=== PATIENT | male | born 1955 | race Two or more races ===

== ENCOUNTER 2018-04-10 15:13 | Emergency (ER) | payer OTHER ==
[~2018-04-10] VITALS: Ht 167.6 cm; Wt 71.2 kg
[2018-04-10] MEDS ORDERED: VASOTEC5 MG (15:40)
[2018-04-10] MEDS ORDERED: LIPITOR20 MG (15:41)
[2018-04-10] MEDS ORDERED: ZANAFLEX4 M1 (15:43)
[2018-04-10] MEDS ORDERED: TRAM1TAB98 (15:43)
[2018-04-10] MEDS ORDERED: MOTRIN IB200 MG (15:43)
[2018-04-10] MEDS ORDERED: KEFLEX500 MG (15:44)
== END 2018-04-10 19:05 | disposition home or self-care (01) ==
LOC: ER 15:13
DX: M62.838 Other muscle spasm (principal)

== ENCOUNTER 2020-11-14 21:50 | Emergency (ER) | payer OTHER ==
[~2020-11-14] VITALS: Ht 167.6 cm; Wt 69.9 kg
[~2020-11-14 21:50] MED LIST: KEFLEX500 MG; LIPITOR20 MG; MOTRIN IB200 MG; TRAM1TAB98; VASOTEC5 MG; ZANAFLEX4 M1
[2020-11-14] MEDS ORDERED: PRILOSEC OTC20 MG (22:07)
[2020-11-15] MEDS ORDERED: DOLOGESIC 500-1 EACH PO (02:20)
== END 2020-11-15 02:34 | disposition home or self-care (01) ==
LOC: ER 21:50
DX: B34.9 Viral infection, unspecified (principal)